=== PATIENT | female | born 1960 | race Caucasian/White ===

== ENCOUNTER → 2019-10-10 14:59 | Outpatient (CLI) | payer BC, OTHER, SELFPAY ==
--- NOTE | 2019-10-10 | DI.MG.S_ITS ---
BILATERAL DIGITAL SCREENING MAMMOGRAM 3D/2D WITH CAD: 10/10/2019 CLINICAL: Routine screening. Comparison is made to exams dated: 04/07/2018 mammogram, 12/28/2016 mammogram, and 12/29/2015 mammogram - [facility]. There are scattered fibroglandular elements in both breasts. Current study was also evaluated with a Computer Aided Detection (CAD) system. No significant masses, calcifications, or other findings are seen in either breast. There has been no significant interval change. IMPRESSION: NEGATIVE There is no mammographic evidence of malignancy. A 1 year screening mammogram is recommended. This exam was interpreted at Station ID: [id number]. NOTE: For mammograms, a report in lay terms will be sent to the patient. Approximately 15% of breast malignancies will not be visualized mammographically. In the management of a palpable breast mass, a negative mammogram must not discourage biopsy of a clinically suspicious lesion. Electronically Signed By: Vineet bailey/belen:10/10/2019 15:32:04 letter sent: Normal Exam ACR BI-RADS Category 1: Negative 3341F
== END ==
PROVIDERS: PCP Internal Medicine; Referring Provider Internal Medicine; Visit Provider Internal Medicine
DX: Z12.31 Encounter for screening mammogram for malignant neoplasm of breast (principal)
CPT/HCPCS: 77063; 77067

== ENCOUNTER → 2020-03-01 14:32 | Outpatient (CLI) | payer BC, OTHER, SELFPAY | PROVIDERS: PCP Internal Medicine; Referring Provider Internal Medicine; Visit Provider Internal Medicine | DX: Z78.0 Asymptomatic menopausal state (principal); E07.9 Disorder of thyroid, unspecified; Z87.891 Personal history of nicotine dependence | CPT/HCPCS: 77080 ==

== ENCOUNTER → 2020-12-31 15:20 | Outpatient (CLI) | payer BC, OTHER, SELFPAY ==
--- NOTE | 2020-12-31 | DI.MG.S_ITS ---
BILATERAL DIGITAL SCREENING MAMMOGRAM 3D/2D WITH CAD: 12/31/2020 CLINICAL: Routine screening. Comparison is made to exams dated: 10/10/2019 mammogram - [facility], 04/07/2018 mammogram, and 12/28/2016 mammogram - [facility]. There are scattered fibroglandular elements in both breasts. Current study was also evaluated with a Computer Aided Detection (CAD) system. There is a biopsy clip in the left breast. No significant masses, calcifications, or other findings are seen in either breast. There has been no significant interval change. IMPRESSION: NEGATIVE There is no mammographic evidence of malignancy. A 1 year screening mammogram is recommended. This exam was interpreted at Station ID: [id number]. NOTE: For mammograms, a report in lay terms will be sent to the patient. Approximately 15% of breast malignancies will not be visualized mammographically. In the management of a palpable breast mass, a negative mammogram must not discourage biopsy of a clinically suspicious lesion. Electronically Signed By: Susu okeefe/belen:01/03/2021 13:13:56 letter sent: Normal Exam ACR BI-RADS Category 1: Negative 3341F
--- NOTE | 2020-12-31 15:21 | DI.MRI.S_ITS ---
PROCEDURE: MR HEAD/BRAIN WO/W CON INDICATIONS: Paresthesia of skin,Other amnesia TECHNIQUE: Noncontrast axial T1 spin echo, axial T2 fast spin echo, sagittal and axial FLAIR, coronal T2 fast spin echo, axial gradient echo, axial diffusion and ADC through the brain. After the administration of contrast, axial and coronal 3D VIBE or T1 spin echo with fat saturation through the brain. COMPARISON: None. FINDINGS: Image quality: Excellent. CSF Spaces: Basal cisterns are patent. No extra-axial fluid collections. Ventricles are normal in size and shape. Brain: No midline shift. No intracranial bleeds or masses. No abnormal intracranial enhancement. The brainstem appears normal. Diffusion-weighted images demonstrate no acute ischemic insults. No chronic ischemic insults. Normal intravascular flow voids are present. Skull and face: Calvarial marrow is normal in signal. Orbits appear normal. Sinuses: Sinuses and mastoids appear clear. IMPRESSION: 1. Negative brain MRI. 2. No explanation for paresthesias. Dictated by: Norma Lares M.D. on 12/31/2020 at 16:49 Approved by: Norma Lares M.D. on 12/31/2020 at 16:50
--- NOTE | 2020-12-31 15:21 | DI.MRI.S_ITS ---
PROCEDURE: MR CERVICAL SPINE WO CON INDICATIONS: Paresthesia of skin,Other amnesia TECHNIQUE: Noncontrast sagittal T1 spin echo and T2 fast spin echo, sagittal STIR, foraminal oblique sagittal T2 fast spin echo, and axial gradient echo or T2 fast spin echo through the cervical spine. COMPARISON: None. FINDINGS: Image quality: Excellent. Alignment and Curvature: There is loss of normal cervical lordosis. Mild kyphosis at C4-C6. Mild grade 1 anterolisthesis of C2 on C3, C3 on C4. Mild grade 1 retrolisthesis of C6 on C7. Mild grade 1 anterolisthesis of C7 on T1. Bone Marrow: Marrow demonstrates normal overall signal. There is moderate reactive signal within the endplates adjacent to the C5-C6 and C6-C7 intervertebral discs. Spinal Cord: Visualized spinal cord has normal size and signal. No cerebellar tonsillar herniation. Paraspinous Soft Tissues: No paravertebral masses. Prevertebral soft tissues are normal in thickness. C2-C3: Moderate disc desiccation. Congenital canal stenosis. Mild diffuse disc bulge. Moderate canal stenosis. No foraminal stenosis. C3-C4: Congenital canal stenosis. Moderate disc desiccation. Mild diffuse disc bulge. Mild facet and uncovertebral hypertrophy bilaterally, left greater than right. Moderate canal stenosis. Moderate left and mild right foraminal stenosis. C4-C5: Congenital canal stenosis. Moderate disc desiccation. Mild diffuse disc bulge. Mild facet and uncovertebral hypertrophy bilaterally. Moderate canal stenosis. Mild bilateral foraminal stenosis. C5-C6: Congenital canal stenosis. Moderate disc height loss and desiccation. Moderate diffuse disc bulge/osteophyte. Moderate facet and uncovertebral hypertrophy bilaterally. Moderate to severe canal stenosis. Mild cord flattening. Moderate bilateral foraminal stenosis. C6-C7: Congenital canal stenosis. Moderate disc height loss and desiccation. Mild diffuse disc bulge/osteophyte. Moderate facet and uncovertebral hypertrophy bilaterally. Moderate to severe canal stenosis. Minimal anterior cord flattening. Moderate right and mild left foraminal stenosis. C7-T1: Congenital canal stenosis. Mild disc height loss and desiccation. Mild diffuse disc bulge. Mild facet and uncovertebral hypertrophy bilaterally. Moderate canal stenosis. Moderate right and mild left foraminal stenosis. T1-T2: Mild disc height loss and desiccation. No significant canal, or foraminal stenosis. T2-T3: This level is seen on the sagittal views only. Moderate disc height loss and desiccation with superimposed right paracentral protrusion. Mild facet and uncovertebral hypertrophy. Moderate to severe canal stenosis. Moderate bilateral foraminal stenosis. IMPRESSION: 1. Diffuse congenital canal stenosis with superimposed disc and facet disease, as well as uncovertebral hypertrophy. 2. Multilevel canal stenoses, worst at C5-C6 and C6-C7, where there is mild cord flattening. 3. Multilevel foraminal stenoses, worst at C3-C4, C5-C6, C6-C7, and C7-T1, where there are moderate foraminal stenoses present. 4. Moderate to severe canal stenosis at T2-T3 seen on the sagittal views only. This could be further assessed with thoracic spine MRI, if clinically indicated. Dictated by: Norma Lares M.D. on 12/31/2020 at 16:50 Approved by: Norma Lares M.D. on 12/31/2020 at 16:57
== END ==
PROVIDERS: PCP Internal Medicine; Referring Provider Internal Medicine; Visit Provider Internal Medicine
DX: R20.2 Paresthesia of skin (principal); R41.3 Other amnesia; Z12.31 Encounter for screening mammogram for malignant neoplasm of breast
CPT/HCPCS: 70553; 72141; 77063; 77067; A9579

== ENCOUNTER → 2021-02-08 07:28 | Outpatient (CLI) | payer OTHER, BC, SELFPAY ==
--- NOTE | 2021-02-08 | DI.MRI.S_ITS ---
PROCEDURE: MR CERVICAL SPINE WO/W CON INDICATIONS: CERVICAL SPINE CANCER TECHNIQUE: Noncontrast sagittal T1 spin echo and T2 fast spin echo, sagittal STIR, foraminal oblique sagittal T2 fast spin echo, axial gradient echo or T2 fast spin echo through the cervical spine. After the administration of contrast, axial and sagittal T1 spin echo with fat saturation through the cervical spine. COMPARISON: [facility], MR, MR CERVICAL SPINE WO CON, 12/31/2020, 15:33. FINDINGS: Image quality: Degraded by patient motion artifact. Alignment and curvature: Mild reversal normal cervical spine curvature. Mild C2-C3, C3-C4 and C7-T1 anterolisthesis stable compared to prior exam. Mild C6-C7 retrolisthesis stable compared to prior exam. Bones: Reactive endplate changes noted adjacent to the C5-C6 and C6-C7 discs. Marrow signal is slightly heterogeneous in the T3, T4 and visualized T5 vertebral bodies with slightly heterogeneous post-contrast enhancement. No cortical destruction/osseous erosion. Spinal cord: Visualized spinal cord has normal size and signal. No cerebellar tonsillar herniation. No abnormal intramedullary enhancement. Paraspinous soft tissues: No paravertebral masses or suspicious enhancement. C2-3: Loss of disc signal. Mild, diffuse disc bulge. Mild bilateral facet hypertrophy. Moderate narrowing of the central canal. No neural foraminal narrowing. No neural compression. C3-4: Loss of disc signal. Mild, diffuse disc bulge. Mild bilateral facet and uncovertebral joint hypertrophy. Moderate narrowing of the central canal. Mild right and moderate left neural foraminal narrowing. No neural compression. C4-5: Loss of disc signal. Mild, diffuse disc bulge. Mild facet and uncovertebral joint hypertrophy. Moderate narrowing of the central canal. Mild bilateral neural foraminal narrowing. No neural compression. C5-6: Loss of disc signal and height. Moderate, diffuse disc bulge. Moderate facet hypertrophy. Severe uncovertebral joint hypertrophy. Moderate to severe narrowing of the central canal with slight compression of the cervical spinal cord. Severe bilateral neural foraminal narrowing with compression of the exiting C6 nerve roots. C6-7: Loss of disc signal and height. Mild to moderate diffuse disc bulge. Moderate to severe narrowing of the central canal with mild compression of the cervical spinal cord. Severe bilateral neural foraminal narrowing with compression of the exiting C7 nerve roots. C7-T1: Loss of disc signal. Mild, diffuse disc bulge. Mild bilateral facet and uncovertebral joint hypertrophy. Moderate narrowing of the central canal. Moderate bilateral neural foraminal narrowing. No neural compression. T1-T2: Loss of disc signal. No central stenosis. No no neural foraminal narrowing. No neural compression. T2-T3: Loss of disc signal and height. Moderate, diffuse disc bulge. Large central disc protrusion. Moderate to severe narrowing of the central canal with mild compression of the spinal cord. Moderate bilateral neural foraminal narrowing. IMPRESSION: 1. Slight heterogeneous signal and post-contrast enhancement involving the T3, T4 and visualized T5 vertebral bodies which could represent senescent change versus neoplastic process. 2. Multilevel degenerative disc disease. 3. Multilevel facet and uncovertebral arthropathy. 4. Moderate to severe C5-C6, C6-C7 and T2-T3 central canal narrowing with mild compression of the spinal cord. Roula a 5. Severe bilateral C5-C6 and C6-C7 neural foraminal narrowing with compression of the exiting bilateral C6 and C7 nerve roots. Dictated by: Trinidad Schulz MD, PhD on 02/08/2021 at 10:51 Approved by: Trinidad Schulz MD, PhD on 02/08/2021 at 11:28
== END ==
PROVIDERS: PCP Internal Medicine; Referring Provider Physician Assistant Medical; Visit Provider Physician Assistant Medical
DX: D49.2 Neoplasm of unspecified behavior of bone, soft tissue, and skin (principal); M47.812 Spondylosis without myelopathy or radiculopathy, cervical region; M50.31 Other cervical disc degeneration, high cervical region; M48.02 Spinal stenosis, cervical region
CPT/HCPCS: 72156

== ENCOUNTER 2021-09-25 12:25 | Emergency (ER) | payer OTHER, SELFPAY ==
[2021-09-25 12:39] VITALS: BP 185/83; PULSE 103; RESP 18; TEMP 36.1; O2SAT 96; BMI 39.0
--- NOTE | 2021-09-25 13:03 | DI.RAD.S_ITS ---
PROCEDURE: XR LUMBAR SPINE 1V INDICATIONS: Fall, back pain TECHNIQUE: 3 views of the lumbar spine were acquired. COMPARISON: [facility], , L-SPINE 2-3 VIEWS, 12/20/2009, 14:22. FINDINGS: Bones: 5 [id number] vertebrae are present. There is normal bony alignment. No acute vertebral body compression fractures. No suspicious bony lesions. Moderate multilevel lumbar spondylosis which has progressed compared to the prior study. There has been significant interval loss of the L2-3 disc space with severe degenerative endplate changes and endplate osteophyte formation. Moderate mid and lower lumbar facet arthropathy. Moderate degenerative changes of the bilateral hips. Soft tissues: Overlying bowel gas pattern is normal. No suspicious soft tissue calcifications. Moderate fecal burden seen throughout the colon. IMPRESSION: Lumbar spine without acute fracture or traumatic malalignment. Interval progression of now moderate multilevel lumbar spondylosis most severe at L2-3. There is also associated moderate mid and lower lumbar facet arthropathy. Moderate bilateral hip joint degenerative change. Dictated by: Vineet Demarco M.D. on 09/25/2021 at 12:40 Approved by: Vineet Demarco M.D. on 09/25/2021 at 12:42
--- NOTE | 2021-09-25 13:03 | DI.RAD.S_ITS ---
PROCEDURE: XR HIP W PEL IF DONE BILAT 2V INDICATIONS: Fall, hip pain TECHNIQUE: AP pelvis with lateral view(s) of the bilateral hip(s). COMPARISON: None. FINDINGS: Bones: No acute fractures or dislocations. Pelvic ring appears intact. No suspicious bony lesions. Moderate degenerative changes of the bilateral hips. Lower lumbar spondylosis. Soft tissues: The visualized bowel gas pattern is normal. No suspicious soft tissue calcifications. IMPRESSION: Bilateral hip and pelvis without acute fracture or dislocation. Moderate bilateral hip degenerative change. Lower lumbar spondylosis. If there is persistent high clinical suspicion for occult fracture, consider further evaluation with CT or MRI. Dictated by: Vineet Demarco M.D. on 09/25/2021 at 12:42 Approved by: Vineet Demarco M.D. on 09/25/2021 at 12:45
--- NOTE | 2021-09-25 13:08 | ED_ITS ---
HPI - Fall <Emanuel Pérez PA-C - Last Filed: 09/25/21 19:34> General Chief Complaint: Fall Stated Complaint: fell; lower back pain and hips Time Seen by Provider: 09/25/21 12:37 Source: patient Mode of arrival: Wheelchair History of Present Illness HPI Narrative: Patient is a 60-year-old female presenting to the emergency department today for evaluation low back pain and left hip pain. Patient states that she fell 2 and to 3 weeks ago while walking the dog. She states that the dog pulled her forward causing her to land on her hands and knees. She states that she initially experienced left knee pain, however she states that her left knee pain has since subsided. She explains that she is been resting in bed more frequently due to the injury. She states that she has had increasing amounts of low back pain and left hip pain following the initial injury. Of note, patient states she did not hit her head or lose consciousness as a result of the fall. No fever, chills, chest pain, cough, shortness of breath, nausea, vomiting, diarrhea, abdominal pain, dysuria, hematuria, urinary incontinence, fecal incontinence, saddle anesthesia, or any other concerning symptoms reported. No further concerns were voiced at this time. Related Data Home Medications Medication Instructions Recorded Confirmed DOCUSATE SODIUM (Colace / Wan) 50 mg PO PRN #0 12/20/09 ESTRADIOL (Estrace) 1 mg PO Q DAY #0 12/20/09 Fluoxetine Hydrochloride (Prozac) 20 mg PO Q DAY #0 12/20/09 Loratadine (Claritin) PRN #0 12/20/09 [UNK ANTIBIOTIC] #0 12/20/09 Previous Rx's Medication Instructions Recorded oxycodone 5 mg capsule 5 mg PO DAILY #12 cap 09/25/21 Allergies Allergy/AdvReac Type Severity Reaction Status Date / Time indomethacin [From INDOCIN] Allergy Unknown Verified 09/25/21 13:20 Review of Systems <Emanuel Pérez PA-C - Last Filed: 09/25/21 19:34> Constitutional Constitutional: Denies chills, Denies fatigue, Denies fever(s), Denies frequent falls, Denies lethargy and Denies weakness Eyes Eyes: Denies loss of vision ENT Ears, Nose, Mouth, and Throat: Denies dizziness and Denies neck pain Cardiovascular Cardiovascular: Denies chest pain, Denies irregular heart rhythm, Denies lightheadedness, Denies palpitations, Denies dyspnea, Denies dyspnea on exertion and Denies orthopnea Respiratory Respiratory: Denies cough, Denies dyspnea, Denies dyspnea on exertion and Denies wheezing Gastrointestinal Gastrointestinal: Denies abdominal pain, Denies change in bowel habits, Denies diarrhea, Denies nausea and Denies vomiting Genitourinary Genitourinary: Denies hematuria, Denies flank pain, Denies urinary incontinence and Denies urinary urgency Musculoskeletal Musculoskeletal: Reports back pain, Reports arthralgias (Left hip pain), Denies joint swelling, Denies muscle weakness, Denies neck pain, Denies numbness and Denies tingling Integumentary/Breasts Skin/Breast: Denies pruritus, Denies erythema, Denies rash and Denies wounds Neurologic Neurologic: Denies behavioral changes, Denies confusion, Denies dizziness, Denies frequent falls, Denies loss of vision, Denies numbness, Denies tingling and Denies weakness Psychiatric Psychiatric: Denies behavioral changes and Denies confusion Endocrine Endocrine: Denies fatigue and Denies palpitations Allergic/Immunologic Allergic/Immunologic: Denies wheezing Patient History <Emanuel Pérez PA-C - Last Filed: 09/25/21 19:34> Social History Smoking Status: Never smoker Smoking Status: Never smoker alcohol intake frequency: 0-2 drinks per day Substance Use Type: does not use Exam <Emanuel Pérez PA-C - Last Filed: 09/25/21 19:34> Narrative Exam Narrative: GENERAL: 60 year old patient appears stated age. Well-developed patient, in mild distress. Large body habitus. HEAD: Atraumatic. Normocephalic. EYES: Pupils equal round and reactive. Extraocular motions intact. No scleral icterus. No injection or drainage. ENT: Nose without bleeding, purulent drainage. Throat without erythema, tonsillar hypertrophy or exudate. Airway patent. NECK: Trachea midline. Non tender CARDIOVASCULAR: Regular rate and rhythm without murmurs, gallops, or rubs. RESPIRATORY: Clear to auscultation. Breath sounds equal bilaterally. No wheezes, rales, or rhonchi. GASTROINTESTINAL: Abdomen soft, non-tender, nondistended. EXTREMITIES: No edema. Mild tenderness to palpation noted along the lateral aspect of the left hip, no exquisite tenderness appreciated with internal external rocking of the left hip. MUSCULOSKELETAL: Tenderness to palpation over the left-sided paraspinal muscles in the area of L4-L5, L5-S1. No deformity or crepitance appreciated on p alpation. No significant overlying ecchymosis. BACK: Nontender without deformity or crepitance. No flank tenderness. NEURO: AOx3. Good sensation to light touch appreciated throughout the bilateral lower extremities. Gross motor function intact throughout the bilateral lower extremities. SKIN: No rash or erythema of visible areas Initial Vital Signs Initial Vital Signs: Vital Signs Temperature 96.9 F L 09/25/21 12:39 Pulse Rate 103 H 09/25/21 12:39 Respiratory Rate 18 09/25/21 12:39 Blood Pressure 185/83 H 09/25/21 12:39 Pulse Oximetry 96 09/25/21 12:39 <Valerie Caldera DO - Last Filed: 09/26/21 07:29> Initial Vital Signs Initial Vital Signs: Vital Signs Temperature 96.9 F L 09/25/21 12:39 Pulse Rate 103 H 09/25/21 12:39 Respiratory Rate 18 09/25/21 12:39 Blood Pressure 185/83 H 09/25/21 12:39 Pulse Oximetry 96 09/25/21 12:39 Course <Emanuel Pérez PA-C - Last Filed: 09/25/21 19:34> Course Course Narrative: X-ray of the lumbar spine, x-ray of bilateral hips and pelvis obtained. Orders Ordered: Discontinued Medications Oxycodone HCl (Oxycodone Ir 5 Mg Tablet) 5 mg PO NOW ONE Stop: 09/25/21 13:05 Last Admin: 09/25/21 13:28 Dose: 5 mg Documented by: HATTIE Vital Signs Vital signs: Vital Signs - 8 hr 09/25/21 12:39 09/25/21 14:18 Temperature 96.9 F L Pulse Rate 103 H 74 Respiratory Rate 18 18 Blood Pressure 185/83 H 168/69 H Pulse Oximetry 96 94 <Valerie Caldera DO - Last Filed: 09/26/21 07:29> Orders Ordered: Discontinued Medications Oxycodone HCl (Oxycodone Ir 5 Mg Tablet) 5 mg PO NOW ONE Stop: 09/25/21 13:05 Last Admin: 09/25/21 13:28 Dose: 5 mg Documented by: HATTIE Vital Signs Vital signs: Vital Signs - 8 hr 09/25/21 12:39 09/25/21 14:18 Temperature 96.9 F L Pulse Rate 103 H 74 Respiratory Rate 18 18 Blood Pressure 185/83 H 168/69 H Pulse Oximetry 96 94 MDM - Fall <Emanuel Pérez PA-C - Last Filed: 09/25/21 19:34> Imaging Data Extremity x-ray #1: Radiologist's Impression: PROCEDURE:? XR LUMBAR SPINE 1V ? INDICATIONS:? Fall, back pain ? TECHNIQUE:? 3 views of the lumbar spine were acquired.? ? COMPARISON:? [facility], , L-SPINE 2-3 VIEWS, 12/20/2009, 14:22. ? FINDINGS:? ? Bones:? 5 [id number] vertebrae are present.? There is normal bony alignment.? No acute vertebral body compression fractures.? No suspicious bony lesions.? Moderate multilevel lumbar spondylosis which has progressed compared to the prior study.? There has been significant interval loss of the L2-3 disc space with severe degenerative endplate changes and endplate osteophyte formation.? Moderate mid and lower lumbar facet arthropathy.? Moderate degenerative changes of the bilateral hips. ? Soft tissues:? Overlying bowel gas pattern is normal.? No suspicious soft tissue calcifications.? Moderate fecal burden seen throughout the colon. ? ? IMPRESSION:? Lumbar spine without acute fracture or traumatic malalignment. ? Interval progression of now moderate multilevel lumbar spondylosis most severe at L2-3.? There is also associated moderate mid and lower lumbar facet arthropathy. ? Moderate bilateral hip joint degenerative change. ? ? Dictated by: Vineet Demarco M.D. on 09/25/2021 at 12:40 ? ? Approved by: Vineet Demarco M.D. on 09/25/2021 at 12:42 ? Extremity x-ray #2: Radiologist's Impression: PROCEDURE:? XR HIP W PEL IF DONE BILAT 2V ? INDICATIONS:? Fall, hip pain ? TECHNIQUE:? AP pelvis with lateral view(s) of the bilateral hip(s).? ? COMPARISON:? None. ? FINDINGS:? ? Bones:? No acute fractures or dislocations.? Pelvic ring appears intact.? No suspicious bony lesions.? Moderate degenerative changes of the bilateral hips.? Lower lumbar spondylosis. ? Soft tissues:? The visualized bowel gas pattern is normal.? No suspicious soft tissue calcifications.? ? ? IMPRESSION:? Bilateral hip and pelvis without acute fracture or dislocation.? Moderate bilateral hip degenerative change.? Lower lumbar spondylosis. ? If there is persistent high clinical suspicion for occult fracture, consider further evaluation with CT or MRI. ? Dictated by: Vineet Demarco M.D. on 09/25/2021 at 12:42 ? ? Approved by: Vineet Demarco M.D. on 09/25/2021 at 12:45? MDM Narrative Medical decision making narrative: Differential diagnosis to consider but not limited to fracture versus dislocation versus sprain versus strain versus osteoarthritis. Overall, physical examination and x-ray imaging obtained in the emergency department today were reassuring. I discussed x-ray results with patient and informed her that no acute abnormality was identified today. I urged the patient to follow up with the primary care provider within the next 2-3 days for further evaluation. Additionally, I discussed plan to prescribe the patient a short course of medications help alleviate her discomfort. Instructions were provided the patient to increase physical activity as tolerated to help alleviate discomfort. Patient expresses understanding agrees to plan. She states at this time she is comfortable being discharged home is stable for discharge. Strict return precautions were discussed with the patient prior to discharge. Discharge Plan Departure Patient Disposition: Home Clinical Impression: Low back pain, Spondylosis, Acute pain of left hip, Bilateral hip joint arthritis Instructions: DI for Low Back Pain Activity Restrictions/Additional Instructions: *You have been diagnosed with low back pain, spondylosis, left hip pain, bilateral hip osteoarthritis *What to do: *Please continue to take your regular medications as directed. [ ] New medication prescriptions sent to your pharmacy: [ ] [X] New medication written as a paper prescription - Oxycodone [ ] No new medications given You were evaluated in the emergency department today for low back pain and hip pain. X-ray imaging obtained in the emergency department today did not show signs of acute abnormality. However, osteoarthritis was identified throughout both of your hips and throughout the low back. It is important that you increase physical activity as tolerated to help alleviate discomfort further. I prescribed do a short course of medications to help alleviate her discomfort, please take these medications only for severe pain. I recommend following up w ith the primary care provider within the next 2-3 days for further evaluation. Please do not hesitate to return to the emergency department if you experience worsening pain, numbness and tingling in her lower extremities, loss of bowel or bladder control, or any other concerning symptoms. *Please follow up with your primary care provider in 2-3 days, call for an appointment. Let them know you were seen in the Emergency Department and that we ask that you be seen in follow up. We will electronically transmit a record of today's note if your PCP is in our system *If you do not have a primary care provider please contact the [facility] Resource line at [phone]. They will ask some questions about your medical history and help get you set up with a doctor in the community. *Return to Emergency Department if you should have any new, worsening or concerning symptoms, such as fever greater than 101 F, shaking chills, worsening pain, persistent vomiting or other bothersome symptoms Prescriptions: New oxycodone 5 mg capsule 5 mg PO DAILY Qty: 12 0RF No Action ESTRADIOL (Estrace) 1 mg PO Q DAY Qty: 0 0RF Loratadine (Claritin) PRN Qty: 0 0RF Fluoxetine Hydrochloride (Prozac) 20 mg PO Q DAY Qty: 0 0RF DOCUSATE SODIUM (Colace / Wan) 50 mg PO PRN Qty: 0 0RF [UNK ANTIBIOTIC] Qty: 0 0RF Referrals: Hanane Restrepo MD [Primary Care Provider] - <Valerie Caldera DO - Last Filed: 09/26/21 07:29> [facility] Attending Miriam Attestation: I was immediately available in the department for consultation. Documentation has been reviewed.
[2021-09-25] MEDS: OXYCODONE IR 5 MG TABLET PO (13:28)
[2021-09-25 14:18] VITALS: BP 168/69; PULSE 74; RESP 18; O2SAT 94
== END 2021-09-25 14:19 | disposition home or self-care (01) ==
PROVIDERS: Emergency Provider Physician Assistant; PCP Internal Medicine
DX: M54.50 Low back pain, unspecified (principal); M25.552 Pain in left hip; M47.816 Spondylosis without myelopathy or radiculopathy, lumbar region; M16.0 Bilateral primary osteoarthritis of hip
CPT/HCPCS: 72020; 72100; 73522; 99283

== ENCOUNTER 2021-10-27 18:00 | Emergency (ER) | payer OTHER, SELFPAY ==
[2021-10-27] VITALS (7 sets, daily range): BP systolic 173–200; BP diastolic 79–97; PULSE 73–86; RESP 18–36; TEMP 36.6; O2SAT 93–96; BMI 39.0
--- NOTE | 2021-10-27 18:28 | DI.RAD.S_ITS ---
PROCEDURE: XR CHEST 1V INDICATIONS: chest pain TECHNIQUE: One view of the chest was acquired. COMPARISON: [facility], , CHEST 2 VIEW, 10/30/2015, 12:27. FINDINGS: Surgical changes and devices: None. Lungs and pleura: Lungs are clear. No pleural effusions or pneumothorax. Mediastinum: Mediastinal contours appear normal. Heart size is normal. Bones and chest wall: No suspicious bony lesions. Overlying soft tissues appear unremarkable. IMPRESSION: No acute cardiopulmonary findings Approved by: Kin Tamayo M.D. on 10/27/2021 at 18:03
[2021-10-27 18:47] LABS: Add Manual Diff / Slide Review NO; Basophils Absolute Auto 100 /uL (0-100); Basophils Percent Auto 0.6 % (0-2); Eosinophils Absolute Auto 200 /uL (0-450); Eosinophils Percent Auto 2.8 % (2-4); Hematocrit 41.3 % (36-46); Hemoglobin 14.1 g/dL (12.0-16.0); Lymphocytes Absolute Auto 2700 /uL (1100-4500); Lymphocytes Percent Auto 33.2 % (25-40); Mean Corpuscular HGB Conc 34.2 % (30-36); Mean Corpuscular Hemoglobin 31.4 PG (26-34); Mean Corpuscular Volume 91.9 fL (80-100); Monocytes Absolute Auto 500 /uL (0-900); Monocytes Percent Auto 6.2 % (3-14); Neutrophils Absolute Auto 4700 /uL (1500-7000); Neutrophils Percent Auto 57.2 % (50-75); Platelet Count 371 X10^3/uL (150-400); Red Cell Distribution Width 13.3 % (11.6-14.8); White Blood Cell Count 8.2 X10^3/uL (4.5-11.0)
[2021-10-27 18:57] LABS: Alanine Aminotransferase 17 IU/L (<35); Albumin 4.1 g/dL (3.5-5.0); Albumin Globulin Ratio 1.5 (1.0-2.8); Alkaline Phosphatase 80 U/L (38-126); Aspartate Aminotransferase 25 IU/L (14-36); BUN Creatinine Ratio 25.9 (6-22); Bilirubin Total 0.3 mg/dL (0.2-1.3); Blood Urea Nitrogen 22 mg/dL (7-17); Calcium 9.2 mg/dL (8.4-10.2); Carbon Dioxide 25 mmol/L (22-32); Chloride 105 mmol/L (98-107); Creatine Kinase 51 U/L (30-135); Estimated Glomerular Filt Rate > 60.0 mL/min (>60); Globulin 2.8 g/dL (1.7-4.1); Glucose 106 mg/dL (80-110); HEMOLYSIS < 15 (0-50); Lipase 119 U/L (23-300); Magnesium 2.1 mg/dL (1.6-2.3); Potassium 3.9 mmol/L (3.4-5.1); Sodium 138 mmol/L (137-145); Total Protein 6.9 g/dL (6.3-8.2)
[2021-10-27 19:08] LABS: Troponin I < 0.012 ng/mL (0.01-0.034)
--- NOTE | 2021-10-27 19:57 | PC.NURSE ---
Pt c/o hypertension on her home BP machine. No hx of hypertension. Reports feeling dizzy and SOB with exertion.
--- NOTE | 2021-10-27 21:09 | ED_ITS ---
HPI - General Adult General Chief complaint: Hypertension Stated complaint: very high blood pressure, multiple issues Time Seen by Provider: 10/27/21 21:09 Source: patient Mode of arrival: Wheelchair History of Present Illness HPI narrative: 60-year-old woman with a history of hypertension, possible fibromyalgia possible depression comes in with complaints of elevated blood pressures. She describes an episode 6 weeks ago where she tripped over her dog and she has been having back and hip pain since that point. She has an appointment with physical therapy scheduled for next week. Last week she became frustrated with all of her medications because they were not working and she was still having pain so she abruptly stopped at 90 mg of duloxetine and all of her Celebrex she states she that she is still taking her metoprolol but is unsure of the dose and has added Motrin as it is more effective for overall pain control. Her daughter was recently diagnosed with hypertension and came over to check her blood pressures so the entire family decided to check numbers and the patient was surprised that hers was in the 220/110 range. She describes feeling lightheaded, exhausted all the time, exertional dyspnea, dizziness. She also notes that over the last 6 weeks she has significantly decreased activity is been spending much of her time in bed because of her back hip pain. She does not describe palpitations, abdominal pain, vomiting, diarrhea, constipation. She has not noticed any numbness visual changes or motor weakness. Related Data Home Medications Medication Instructions Recorded Confirmed DOCUSATE SODIUM (Colace / Wan) 50 mg PO PRN #0 12/20/09 ESTRADIOL (Estrace) 1 mg PO Q DAY #0 12/20/09 Fluoxetine Hydrochloride (Prozac) 20 mg PO Q DAY #0 12/20/09 Loratadine (Claritin) PRN #0 12/20/09 [UNK ANTIBIOTIC] #0 12/20/09 Previous Rx's Medication Instructions Recorded oxycodone 5 mg capsule 5 mg PO DAILY #12 cap 09/25/21 Allergies Allergy/AdvReac Type Severity Reaction Status Date / Time indomethacin [From INDOCIN] Allergy Unknown Verified 09/25/21 13:20 Review of Systems Review of Systems Narrative: Remainder of complete review of systems is otherwise unremarkable except for that included in the HPI. Patient History Medical History (Updated 10/27/21 @ 21:33 by Josselyn Mckeon MD) Hypertension Social History Smoking Status: Never smoker Smoking Status: Never smoker alcohol intake frequency: 0-2 drinks per day Substance Use Type: does not use Exam Initial Vital Signs Initial Vital Signs: Vital Signs Temperature 97.9 F 10/27/21 18:13 Pulse Rate 86 10/27/21 18:13 Respiratory Rate 20 10/27/21 18:13 Blood Pressure 200/97 H 10/27/21 18:13 Pulse Oximetry 95 10/27/21 18:13 General: Body mass index of 39, in no acute distress. HEENT: Moist mucous membranes, normal sclera with reactive pupils, Neck: No JVD, supple Respiratory: Lungs are clear to auscultation, no wheezing no rales no rhonchi. Full and symmetrical air movement Cardiac: Regular rate and rhythm no murmurs no bruits Abdomen: Soft, nontender, good bowel tones, no flank pain Skin: Warm and dry, no rashes Neurologic: Grossly neurologically intact with no obvious asymmetries or abnormalities Extremities: No trauma, well perfused Psych: Cooperative, appropriate insight and affect Course Orders Ordered: ED Orders 10/27/21 18:28 XR chest 1V Stat Complete Blood Count AUTO DIFF Stat Comprehensive Metabolic Panel Stat Lipase Stat Magnesium Stat Troponin & CK Cardiac Panel Stat EKG-12 Lead Stat Vital Signs Vital signs: Vital Signs - 8 hr 10/27/21 18:13 10/27/21 19:49 10/27/21 20:00 Temperature 97.9 F Pulse Rate 86 79 81 Respiratory Rate 20 20 32 H Blood Pressure 200/97 H 190/81 H 196/91 H Pulse Oximetry 95 93 95 10/27/21 20:30 10/27/21 20:31 Temperature Pulse Rate 79 78 Respiratory Rate 36 H 25 H Blood Pressure 187/79 H Pulse Oximetry 93 95 Medical Decision Making Lab Data Result diagrams: 10/27/21 18:28 10/27/21 18:28 Labs: Lab Results 10/27/21 10/27/21 Range/Units 18:28 18:28 WBC 8.2 (4.5-11.0) X10^3/uL RBC 4.50 (4.0-5.2) X10^6/uL Hgb 14.1 (12.0-16.0) g/dL Hct 41.3 (36-46) % MCV 91.9 (80-100) fL MCH 31.4 (26-34) PG MCHC 34.2 (30-36) % RDW 13.3 (11.6-14.8) % Plt Count 371 (150-400) X10^3/uL Neut % (Auto) 57.2 (50-75) % Lymph % (Auto) 33.2 (25-40) % [place] % (Auto) 6.2 (3-14) % Eos % (Auto) 2.8 (2-4) % Baso % (Auto) 0.6 (0-2) % Neut # (Auto) 4700 (0145-2075) /uL Lymph # (Auto) 2700 (4068-3904) /uL [place] # (Auto) 500 (0-900) /uL Eos # (Auto) 200 (0-450) /uL Baso # (Auto) 100 (0-100) /uL Sodium 138 (137-145) mmol/L Potassium 3.9 (3.4-5.1) mmol/L Chloride 105 (98-107) mmol/L Carbon Dioxide 25 (22-32) mmol/L BUN 22 H (7-17) mg/dL Creatinine 0.85 (0.52-1.04) mg/dL Estimated GFR > 60.0 (>60) mL/min BUN/Creatinine Ratio 25.9 H (6-22) Glucose 106 (80-110) mg/dL Calcium 9.2 (8.4-10.2) mg/dL Magnesium 2.1 (1.6-2.3) mg/dL Total Bilirubin 0.3 (0.2-1.3) mg/dL AST 25 (14-36) IU/L ALT 17 (<35) IU/L Alkaline Phosphatase 80 (38-126) U/L Total Creatine Kinase 51 (30-135) U/L CK-MB (CK-2) TNP CK-MB (CK-2) Rel Index TNP Troponin I < 0.012 (0.01-0.034) ng/mL Total Protein 6.9 (6.3-8.2) g/dL Albumin 4.1 (3.5-5.0) g/dL Globulin 2.8 (1.7-4.1) g/dL Albumin/Globulin Ratio 1.5 (1.0-2.8) Lipase 119 (23-300) U/L ECG Data Interpretation: Sinus rhythm at a rate of 79 Normal intervals, normal axis No acute ischemic changes MDM Narrative Medical decision making narrative: 60-year-old woman with a baseline history of hypertension, recently discontinued 90 mg of duloxetine and then restarted at 30 mg and taking higher doses of ibuprofen complains of generally feeling unwell. Gotten worse over the 6 weeks that she has essentially been in bed due to pain. She also complains of exertional dyspnea. She does have weight and mobility issues secondary to wait. At this point her workup is unremarkable she is not showing evidence of acute stroke or acute coronary syndrome. She has an appointment with her primary care provider tomorrow. I am going to providers with all of the blood work EKG and chest x-ray were done today. Rather than adding additional blood pressure medications today will have her thoroughly discuss her poorly controlled blood pressure with her primary care physician. She may also benefit from outpatient cardiac stress testing with the exertional dyspnea however I suspect that a large component of that is deconditioning that may well be addressed when she begins physical therapy next week. This point questions are answered and she is safe for discharge Discharge Plan Departure Patient Disposition: Home Clinical Impression: Chronic hypertension Instructions: DI for High Blood Pressure Activity Restrictions/Additional Instructions: Thank you for coming in today Your blood pressure is high however you are not having a stroke or heart attack and we do not need to do anything immediately this evening. I have given him copies of the blood work, chest x-ray and EKG done in the emergency department for you to share with her primary care doctor at your visit tomorrow. Please also sure your blood pressure readings so that the 2 of you can decide what are the appropriate steps in fully treating your high blood pressure. Your doctor may also consider outpatient cardiac stress testing to make sure that the shortness of breath your experience with minimal exercise is not related to your heart. I wish you luck in starting physical therapy next week to try and improve your back and hip pain. Prescriptions: No Action ESTRADIOL (Estrace) 1 mg PO Q DAY Qty: 0 0RF Loratadine (Claritin) PRN Qty: 0 0RF Fluoxetine Hydrochloride (Prozac) 20 mg PO Q DAY Qty: 0 0RF DOCUSATE SODIUM (Colace / Wan) 50 mg PO PRN Qty: 0 0RF [UNK ANTIBIOTIC] Qty: 0 0RF oxycodone 5 mg capsule 5 mg PO DAILY Qty: 12 0RF Referrals: Hanane Restrepo MD [Primary Care Provider] -
== END 2021-10-27 21:42 | disposition home or self-care (01) ==
PROVIDERS: Emergency Medicine; Emergency Provider Emergency Medicine; PCP Internal Medicine
DX: I10 Essential (primary) hypertension (principal); R06.00 Dyspnea, unspecified; Z79.899 Other long term (current) drug therapy
CPT/HCPCS: 71045; 80053; 82550; 83690; 83735; 84484; 85025; 93005; 99283; 99284

== ENCOUNTER → 2021-12-23 19:27 | Outpatient (CLI) | payer OTHER, SELFPAY ==
--- NOTE | 2021-12-23 | DI.MRI.S_ITS ---
PROCEDURE: MR LUMBAR SPINE WO CON INDICATIONS: Thoracic, thoracolumbar and lumbosacral disc TECHNIQUE: Noncontrast sagittal T1 spin echo and T2 fast echo, sagittal STIR, and T2 fast spin echo through the lumbar spine. In cases with scoliosis, additional coronal T2 fast spin echo may be performed. COMPARISON: None. FINDINGS: Image quality: Excellent. Alignment and Curvature: There is normal bony alignment. Bone Marrow: Chronic degenerative endplate changes noted at L2-3 Spinal Cord: Conus medullaris terminates at the L1 level. Visualized cord demonstrates normal signal and size. Paraspinous Soft Tissues: No paravertebral masses. T12-L1: Disc height is preserved. Mild circumferential disc bulge present without central or foraminal stenosis. L1-L2: Disc height is preserved. No central or foraminal stenosis. L2-L3: Disc space narrowing and circumferential disc bulge combines with ligamentum flavum laxity and hypertrophic facet joints result in moderate central stenosis effacing both lateral recesses. Moderate bilateral foraminal stenosis present. L3-L4: Disc height loss and circumferential disc bulge with ligamentum flavum laxity results in mild central stenosis. No foraminal stenosis L4-L5: Disc height is preserved. Circumferential disc bulge with hypertrophic facet joints and ligamentum flavum laxity present. There is a small left synovial cyst measuring 5 mm as well projecting into the left lateral recess. Effacement of the left lateral recess and moderate to severe central stenosis present. Moderate bilateral foraminal stenosis present. L5-S1: Disc height is preserved. Circumferential disc bulge present with hypertrophic facet joints. No central stenosis. Moderate bilateral foraminal stenosis greater on the right. IMPRESSION: 1. Multilevel degenerative disc disease and arthropathy results in varying degrees of central and foraminal stenosis detailed above. 2. Left facet synovial cyst may contribute to moderate to severe central and bilateral foraminal stenosis at L4-5 Approved by: Kin Tamayo M.D. on 12/25/2021 at 20:29
== END ==
PROVIDERS: PCP Internal Medicine; Referring Provider Internal Medicine; Visit Provider Internal Medicine
DX: M51.9 Unspecified thoracic, thoracolumbar and lumbosacral intervertebral disc disorder (principal); M51.36 Other intervertebral disc degeneration, lumbar region; M48.061 Spinal stenosis, lumbar region without neurogenic claudication; M71.38 Other bursal cyst, other site
CPT/HCPCS: 72148

== ENCOUNTER → 2024-02-21 09:05 | Outpatient (CLI) | payer OTHER, SELFPAY ==
--- NOTE | 2024-02-21 09:06 | DI.ECHO.S_ITS ---
[facility] : : [address] : [facility], [place] : : [place], : : [place] [address] : : Phone: [phone] Echocardiogram Report + + :Name: ULICES GOMEZ Study Date: 02/21/2024 Height: 60 in : [id number] ReadingLocation: Weight: 200 lb : : Gender: Female BSA: 1.9 m2 : :: 1960 Age: 63 yrs BP: 156/88 mmHg: :Reason For Study: HYPERTENSION : :Ordering Physician: FOX, : :SHREYAS Performed By: Reyes Shaw : :Referring: SHREYAS ESPINAL : + + Interpretation Summary 1) Normal left ventricular thickness, size, wall motion, and systolic function (EF 65-70%). 2) Normal right ventricular size and function. 3) No significant valvular abnormalities. 4) No prior Echo available for comparison. Procedure: A two-dimensional transthoracic echocardiogram with color flow and Doppler was performed. The study quality was technically adequate. There is no prior echocardiogram noted for this patient. The patient was in sinus rhythm with heart rates between 69-78 bpm during the exam. Left Ventricle: The left ventricle is normal in size and wall thickness. The ejection fraction is estimated to be 65-70%. Left ventricular systolic function appears normal without focal wall motion abnormalities. Right Ventricle: The right ventricle is normal size. The right ventricular systolic function is normal. Atria: The left atrial size is normal. Right atrial size is normal. The interatrial septum grossly appears intact with no obvious evidence for an atrial septal defect. Mitral Valve: The mitral valve is normal. There is no mitral valve stenosis. There is trace mitral regurgitation. Aortic Valve: The aortic valve is grossly normal. The aortic valve is not well visualized. There is no aortic valve stenosis. No aortic regurgitation is present. Tricuspid Valve: The tricuspid valve is normal. There is no tricuspid stenosis. There is mild tricuspid regurgitation. The right ventricular systolic pressure is estimated to be at least 35.2 mmHg based on an estimated right atrial pressure of 3 mm Hg. Pulmonic Valve: The pulmonic valve is not well visualized. There is no pulmonic valvular stenosis. There is no pulmonic valvular regurgitation. Great Vessels: The aortic root is normal size. The dimensions of the ascending aorta are normal. The IVC is of normal diameter and collapses greater than 50% with a sniff. This suggests a low right atrial pressure of 3 mm Hg. Pericardium/ Pleura There is no pericardial effusion. There is no pleural effusion. MMode/2D Measurements & Calculations LVIDd: 4.5 cm LVOT diam: 2.1 cm LVIDs: 2.5 cm Ao root diam: 2.8 cm IVSd: 0.77 cm asc Aorta Diam: 2.9 cm LVPWd: 0.88 cm LV jean. diameter/BSA (cm/m^2): 2.4 LV sys. diameter/BSA (cm/m^2): 1.3 FS: 44.4 % LA A2 area: 17.6 cm2 RA long axis: 5.3 cm LA A4 area: 16.5 cm2 RA area: 14.5 cm2 LA length (vol): 5.2 cm RA vol: 33.6 ml LA vol: 47.1 ml RA : 18.0 ml/m2 LA vol index: 25.2 ml/m2 RVD1 (basal): 3.3 cm IVC diam: 1.5 cm RVD2 (mid): 3.1 cm TAPSE: 2.1 cm Doppler Measurements & Calculations Ao V2 max: 123.0 cm/sec LVOT Max Wero: 123.9 cm/sec Ao V2 mean: 78.8 cm/sec LV V1 max P.1 mmHg Ao V2 VTI: 25.2 cm LV V1 VTI: 24.1 cm Ao max P.1 mmHg Ao mean P.8 mmHg LUPE(I,D): 3.3 cm2 MV E max wero: 87.7 cm/sec LUPE(V,D): 3.4 cm2 MV A max wero: 67.1 cm/sec LUPE indexed to BSA (cm^2/m^2): 1.8 MV E/A: 1.3 sev ratio: 0.96 Med Peak E' Wero: 9.4 cm/sec E/E' med: 9.3 Lat Peak E' Wero: 10.9 cm/sec E/E' lat: 8.0 E/e' average: 8.7 MV dec time: 0.19 sec TR max wero: 283.5 cm/sec TR max P.2 mmHg PA V2 max: 115.1 cm/sec SV(LVOT): 82.3 ml PA V2 mean: 84.8 cm/sec PA mean P.2 mmHg PA pr(Accel): 34.5 mmHg Reading Physician:12:30 PM
== END ==
PROVIDERS: PCP Family Medicine; Referring Provider Internal Medicine Cardiovascular Disease; Visit Provider Internal Medicine Cardiovascular Disease
DX: I07.1 Rheumatic tricuspid insufficiency (principal); I10 Essential (primary) hypertension
CPT/HCPCS: 93306